=== PATIENT | female | born 1940 | race Asian ===

== ENCOUNTER 2017-08-20 21:09 | Emergency (ER) | payer MEDICARE, OTHER ==
[~2017-08-20] VITALS: Ht 157.5 cm; Wt 65.8 kg
[~2017-08-20 21:09] MED LIST: ATEN25TA7 PO; CALC-794 PO; ESOM40EC PO; IBUP-1842 PO; MECL-305 PO; TAMS0.4C96 PO
[2017-08-20 21:11] VITALS: BP 140/81
--- NOTE | 2017-08-20 21:24 | NUR ---
RT CALLED FOR BREATHING TX, SPOKE TO CLAUDIO
--- NOTE | 2017-08-20 21:24 | NUR ---
76Y F BIB FAMILY C/O COUGH AND WHEEZING X 10 DAYS. PT FAMILY STATES SHE HAS BEEN ON ABX AND PHENERGAN DM FOR COUGH AND WHEEZING BUT SYMPTOMS STILL ARE PRESENT. PT FAMILY DENIES ANY N/V/D, CP AT THE MOMENT. PT HAS PRODUCTIVE COUGH. NKA. PT WHEELCHAIR ASSISTED TO ER BED 12. ER MD MADE AWARE.
[2017-08-20] MEDS ORDERED: ALBUTEROL 0.083% 2.5 MG/3 ML NEBU INH ONE (21:25)
[2017-08-20] MEDS ORDERED: ALBUTEROL SULFATE/IPRATROPIU 3 ML SOL IH ONE (21:25)
[2017-08-20] MEDS ORDERED: predniSONE 20 MG TAB PO ONE (21:25)
--- NOTE | 2017-08-20 21:31 | NUR ---
Respiratory Therapist at bedside for respiratory intervention.
[2017-08-20] MEDS ORDERED: NACL 0.9% 1,000 ML IV ONE (22:45)
[2017-08-20] MEDS ORDERED: KETOROLAC 30 MG/ML VIAL IVP ONE (22:45)
[2017-08-20 23:14] LABS: BASOPHILS # (AUTO) 0.4 K/uL (0.00-0.22); BASOPHILS % (AUTO) 3.7 % (0.0-2.0); EOSINOPHILS # (AUTO) 0.8 K/uL (0-0.4); EOSINOPHILS % (AUTO) 7.6 % (0.0-4.0); HEMATOCRIT 31.5 % (36-48); HEMOGLOBIN 10.2 g/dL (12.0-16.0); LYMPHOCYTES % (AUTO) 18.7 % (20.5-51.1); MEAN CORPUSCULAR HEMOGLOBIN 29 pg (27-31); MEAN CORPUSCULAR HGB CONC 33 g/dL (33-37); MEAN CORPUSCULAR VOLUME 88 fL (80-94); MONOCYTES # (AUTO) 0.4 K/uL (0.8-1.0); MONOCYTES % (AUTO) 3.6 % (1.7-9.3); NEUTROPHILS % (AUTO) 66.4 % (42.2-75.2); PLATELET COUNT (AUTO) 265 K/uL (140-450); RED CELL DISTRIBUTION WIDTH 12.5 % (11.6-13.7); WHITE BLOOD COUNT (AUTO) 10.6 K/uL (4.8-10.8)
[2017-08-20 23:15] LABS: APPEARANCE,URINE SL CLOUDY (CLEAR); BILIRUBIN,URINE NEGATIVE (NEGATIVE); BLOOD, URINE 1+ (NEGATIVE); COLOR,URINE YELLOW (YELLOW); LEUKOCYTE ESTERASE ,URINE TRACE (NEGATIVE); NITRITE, URINE NEGATIVE (NEGATIVE); UGLUCOSE NEGATIVE (NEGATIVE)
[2017-08-20 23:22] LABS: ANION GAP 13.3 (8-16); CARBON DIOXIDE 24.1 mmol/L (21-32); CHLORIDE 109 mmol/L (98-107); CREATININE 0.8 mg/dL (0.6-1.3); GLUCOSE 114 mg/dL (74-106); POTASSIUM 3.4 mmol/L (3.5-5.1); SODIUM SERUM 143 mmol/L (136-145); UREA NITROGEN, BLOOD 17 mg/dL (7-18)
[2017-08-20 23:28] LABS: ALBUMIN 3.5 g/dL (3.4-5.0); ASPARTATE AMINOTRANSFERASE 18 U/L (15-37); TOTAL BILIRUBIN 0.2 mg/dL (0.0-1.0)
[2017-08-20 23:32] LABS: RBC,URINE 0-5 (RARE) /HPF (0-5); URINE AMORPHOUS URATE 3+ /HPF (None Seen); WBC,URINE 0-5 (RARE) /HPF (0-5)
[2017-08-21 01:08] VITALS: BP 139/82
--- NOTE | 2017-08-21 01:08 | NUR ---
Patient discharged with v/s stable. Written and verbal after care instructions given and explained. Patient alert, oriented and verbalized understanding of instructions. Ambulatory with steady gait. All questions addressed prior to discharge. ID band removed. Patient advised to follow up with PMD. Rx of MOTRIN 600MG, PREDNISONE 20MG AND ALBUTEROL 90MCG given. Patient educated on indication of medication including possible reaction and side effects. Opportunity to ask questions provided and answered.
== END 2017-08-21 01:08 | disposition home or self-care (01) ==
LOC: MED 21:09
DX: R06.02 Shortness of breath (principal); R05 Cough; R51 Headache; I10 Essential (primary) hypertension; Z79.899 Other long term (current) drug therapy
CPT/HCPCS: 36415; 71045; 80053; 81001; 83880; 84484; 85025; 94640; 96361; 96374; 99285; J1885; J7030; J7512; J7613; J7620; Q0092

== ENCOUNTER 2021-01-01 18:49 | Observation (INO) | payer OTHER, MEDICARE, SELFPAY ==
[~2021-01-01] VITALS: Ht 152.4 cm; Wt 59.0 kg
[2021-01-01] MEDS: NACL 0.9% 1,000 ML IV SCH (00:30)
[~2021-01-01 18:49] MED LIST changes: -CALC-794 PO; +MECL-231 PO; -MECL-305 PO; +[UNRECOGNIZED DRUG - OTHER] PO
[2021-01-01 19:03] VITALS: BP 124/55
--- NOTE | 2021-01-01 19:11 | NUR ---
PT W/C ASSISTED TO ER BED 6. FAMILY AT BEDSIDE
--- NOTE | 2021-01-01 19:54 | NUR ---
Dr. Doyle examining patient.
[2021-01-01] MEDS ORDERED: cefTRIAXone 1,000 MG in DEXT 5% MINI-BAG PLUS 50 ML IV ONE (20:05)
--- NOTE | 2021-01-01 20:24 | NUR ---
EKG PERFORMED AT BEDSIDE. EKG READS SINUS RHYTHM @ 59
[2021-01-01 20:26] LABS: BASOPHILS # (AUTO) 0.1 K/uL (0.00-0.22); EOSINOPHILS # (AUTO) 0.2 K/uL (0-0.4); EOSINOPHILS % (AUTO) 1.8 % (0.0-4.0); HEMATOCRIT 36.5 % (36-48); LYMPHOCYTES # (AUTO) 2.3 K/uL (2.5-16.5); LYMPHOCYTES % (AUTO) 26.2 % (20.5-51.1); MEAN CORPUSCULAR HEMOGLOBIN 30 pg (27-31); MEAN CORPUSCULAR HGB CONC 33 g/dL (33-37); MEAN CORPUSCULAR VOLUME 91.4 fL (80-94); MONOCYTES # (AUTO) 0.8 K/uL (0.8-1.0); MONOCYTES % (AUTO) 9.4 % (1.7-9.3); NEUTROPHILS # (AUTO) 5.4 K/uL (1.8-7.7); NEUTROPHILS % (AUTO) 61.6 % (42.2-75.2); PLATELET COUNT (AUTO) 344 K/uL (140-450); RED CELL DISTRIBUTION WIDTH 13.7 % (11.6-13.7); WHITE BLOOD COUNT (AUTO) 8.8 K/uL (4.8-10.8)
[2021-01-01 20:31] LABS: APPEARANCE,URINE CLEAR (CLEAR); BILIRUBIN,URINE NEGATIVE (NEGATIVE); BLOOD, URINE NEGATIVE (NEGATIVE); COLOR,URINE YELLOW (YELLOW); LEUKOCYTE ESTERASE ,URINE NEGATIVE (NEGATIVE); NITRITE, URINE NEGATIVE (NEGATIVE); UGLUCOSE NEGATIVE (NEGATIVE)
[2021-01-01 20:45] LABS: ALBUMIN 3.7 g/dL (3.4-5.0); ANION GAP 15.6 (8-16); ASPARTATE AMINOTRANSFERASE 12 U/L (15-37); CARBON DIOXIDE 25.7 mmol/L (21-32); CHLORIDE 106 mmol/L (98-107); GLUCOSE 100 mg/dL (74-106); POTASSIUM 4.3 mmol/L (3.5-5.1); SODIUM SERUM 143 mmol/L (136-145); TOTAL BILIRUBIN 0.5 mg/dL (0.0-1.0); UREA NITROGEN, BLOOD 15 mg/dL (7-18)
--- NOTE | 2021-01-01 20:50 | NUR ---
PT TAKEN TO CT
[2021-01-01] MEDS ORDERED: cefTRIAXone 1,000 MG VIAL ONE (20:59)
--- NOTE | 2021-01-01 21:03 | NUR ---
PT RETURN FROM CT
--- NOTE | 2021-01-01 21:15 | NUR ---
80 YO/F BIB self accompanied by rajiv w C/O dizzyness, feeling faint, weakness in arms and legs x10 years but worsened today. Patient also reports vomiting several times w C/O neck and epigastric pain when vomiting. Patient denies any pain at this time. Patient GCS 14. Lungs sounds clear throughout, breathing even and unlabored. S1S2 present. Bowel sounds present. Assessed patient w Portuguese director inpatient headache program assistance ID #[id number]. Patient sitting in bed locked in lowest position, HOB elevated x2 side rails up for patient safety. NAD noted, will continue to monitor. PMH: HTN NKA
--- NOTE | 2021-01-01 22:05 | NUR ---
Meghna sample collected from Nares and handed to Flower from lab. Patient tolerated procedure well.
--- NOTE | 2021-01-01 22:10 | NUR ---
Patient's daughter Medina, gave contact information phone number to contact when patient is ready for discharge.
[2021-01-01] MEDS ORDERED: AMPI500C49 PO (23:17)
[2021-01-01] MEDS ORDERED: SIMV20TA1 PO (23:17)
[2021-01-01] MEDS ORDERED: CALC-483 MC (23:17)
[2021-01-01] MEDS ORDERED: OMEP20TC10 PO (23:17)
[2021-01-01] MEDS ORDERED: BACL10TA4 PO (23:17)
[2021-01-01] MEDS ORDERED: ACETAMINOPHEN 325 MG TAB PO PRN (23:35)
[2021-01-01] MEDS ORDERED: MORPHINE SULFATE 2 MG/ML SYR IVP PRN (23:35)
[2021-01-01] MEDS ORDERED: ONDANSETRON 4 MG/2 ML VIAL IVP PRN (23:35)
[2021-01-01] MEDS ORDERED: LORazepam 2 MG/ML VIAL IVP PRN (23:35)
--- NOTE | 2021-01-02 00:08 | NUR ---
CALLED REPORT TO TATIANA CARVAJAL TO GIVE REPORT. ETA TO FLOOR APPROXIMATELY 5-10 MINS.
--- NOTE | 2021-01-02 00:10 | NUR ---
RECEIVED CALL FROM ER NURSE FOR REPORT. WAITING PATIENT TO TRANSFER TO UNIT.
--- NOTE | 2021-01-02 00:15 | NUR ---
PT ADMITTED UNDER THE CARE OF DR. MUNOZ. PT TRANSPORTED TO MED/SURG RM 121B VIA W/C IN STABLE CONDITION.
[2021-01-02 00:20] VITALS: BP 108/84
--- NOTE | 2021-01-02 00:20 | NUR ---
RECEIVED PATIENT TO ROOM 121B. CC GEN WEAKNESS AND EPIGASTRIC PAIN, DX DIZZINESS. PATIENT SPEAKS [place]. A/A/O X4. RESPIRATORY EVEN AND UNLABORED, ON ROOM AIR. LUNG SOUNDS CLEAR TO AUSCULTATE, NO SIGN OF RESPIRATORY DISTRESS NOTED. BOWEL SOUND ACTIVE TO 4 QUADRANTS. ABDOMEN ROUND, NON TENDER. SKIN WARM, DRY, NON DIAPHORETIC. IV ON LEFT HAND 20G, INTACT AND PATENT, SALINE LOCK. PATIENT DENIES ANY PAIN OR DISCOMFORT. ABLE TO MAKE NEEDS KNOW. MRSA WAS COLLECT FROM ER. ORIENTED TO UNIT AND ROOM. PLAN OF CARE DISCUSSED, PATIENT VERBALIZED UNDERSTANDING. PRECAUTION IN PLACE. CALL LIGHT WITHIN REACH. WILL CONTINUE TO MONITOR.
--- NOTE | 2021-01-02 02:00 | NUR ---
ROUND CHECK. PATIENT IS SLEEPING, CHEST RISE AND FALL NOTED. NO SIGN OF DISTRESS NOTED. PRECAUTION IN PLACE. CALL LIGHT WITHIN REACH. WILL CONTINUE TO MONITOR.
[2021-01-02 04:00] VITALS: BP 110/52
--- NOTE | 2021-01-02 04:00 | NUR ---
ROUND CHECK. PATIENT IS SLEEPING, AROUSABLE TO VOICE. NO SIGN OF DISTRESS NOTED. PRECAUTION IN PLACE. WILL CONTINUE TO MONITOR.
[2021-01-02 05:08] LABS: BASOPHILS # (AUTO) 0.1 K/uL (0.00-0.22); BASOPHILS % (AUTO) 0.6 % (0.0-2.0); EOSINOPHILS # (AUTO) 0.1 K/uL (0-0.4); EOSINOPHILS % (AUTO) 0.8 % (0.0-4.0); HEMATOCRIT 32.4 % (36-48); HEMOGLOBIN 10.8 g/dL (12.0-16.0); LYMPHOCYTES # (AUTO) 2.5 K/uL (2.5-16.5); MEAN CORPUSCULAR HEMOGLOBIN 30 pg (27-31); MEAN CORPUSCULAR HGB CONC 33 g/dL (33-37); MEAN CORPUSCULAR VOLUME 90.6 fL (80-94); MONOCYTES # (AUTO) 0.8 K/uL (0.8-1.0); MONOCYTES % (AUTO) 8.7 % (1.7-9.3); NEUTROPHILS # (AUTO) 5.3 K/uL (1.8-7.7); NEUTROPHILS % (AUTO) 60.9 % (42.2-75.2); PLATELET COUNT (AUTO) 299 K/uL (140-450); RED BLOOD CELL COUNT(AUTO) 3.58 MIL/uL (4.20-5.40); RED CELL DISTRIBUTION WIDTH 13.4 % (11.6-13.7); WHITE BLOOD COUNT (AUTO) 8.7 K/uL (4.8-10.8)
[2021-01-02 05:44] LABS: CREATINE KINASE MB 0.5 ng/mL (0-3.6)
[2021-01-02 06:05] LABS: ALBUMIN 3.2 g/dL (3.4-5.0); ANION GAP 12.2 (8-16); ASPARTATE AMINOTRANSFERASE 17 U/L (15-37); CHLORIDE 109 mmol/L (98-107); GLUCOSE 96 mg/dL (74-106); MAGNESIUM 1.7 mg/dL (1.8-2.4); POTASSIUM 4.2 mmol/L (3.5-5.1); SODIUM SERUM 142 mmol/L (136-145); TOTAL BILIRUBIN 0.3 mg/dL (0.0-1.0); UREA NITROGEN, BLOOD 15 mg/dL (7-18)
--- NOTE | 2021-01-02 06:21 | NUR ---
ASSIST PATIENT AMBULATE TO BATHROOM. PATIENT TOLERATED WELL. NO SIGN OF DISTRESS NOTED. WILL CONTINUE TO MONITOR.
--- NOTE | 2021-01-02 07:15 | NUR ---
ENDORSED PATIENT TO AM NURSE FOR CONTINUITY OF CARE. PATIENT IS STABLE.
--- NOTE | 2021-01-02 07:17 | NUR ---
RECEIVED PATIENT FROM NIGHT NURSE. PATIENT IN BED SLEEPING, CHEST NOTED RISING. NO NOTED DISTRESS AT THIS TIME. LH 20G INFUSING NS 100ML/HR. HOB ELEVATED. SAFETY MEASURES IN PLACE. CALL LIGHT WITHIN REACH. WILL CONTINUE TO MONITOR.
[2021-01-02 08:00] VITALS: BP 127/57
[2021-01-02] MEDS ORDERED: ASPIRIN 81 MG TAB.CHEW PO SCH (09:00)
[2021-01-02] MEDS ORDERED: ENOXAPARIN 40 MG/0.4 ML SYR SUBQ SCH (09:00)
[2021-01-02] MEDS ORDERED: CRUSHER, PILL MC ONE (09:29)
[2021-01-02] MEDS: MECLIZINE 25 MG TAB PO SCH ×3 (09:33→17:17)
[2021-01-02] MEDS: NACL 0.9% 1,000 ML IV SCH (09:53)
--- NOTE | 2021-01-02 09:55 | NUR ---
PATIENT IN BED AWAKE AND ALERT. MORNING ROUTINE MEDICATIONS GIVEN, PATIENT TOLERATED WELL. PT AT BEDSIDE FOR EVALUATION. PATIENT ABLE TO AMBULATE WITH STANDBY ASSIST. PATIENT STATED SHE USES CANE AT HOME AND DAUGHTER AT HOME TO HELP HER MOVE AROUND. PATIENT ALSO STATED SHE IS UNABLE TO AMBULATE OVER LONG PERIOD OF TIME BECAUSE HER FEET WILL GET PAINFUL. DENIED OF ANY SOB DURING AMBULATION. SKIN WARM TO TOUCH AND INTACT. PLAN OF CARE DISCUSSED, PATIENT VERBALIZED UNDERSTANDING. CALL LIGHT WITHIN REACH. WILL CONTINUE TO MONITOR .
--- NOTE | 2021-01-02 10:03 | NUR ---
PATIENT HAS BEEN SCREENED AND CATEGORIZED LOW NUTRITION RISK. PATIENT WILL BE SEEN WITHIN 7 DAYS OF ADMISSION. 01/07/[address]
--- NOTE | 2021-01-02 12:20 | NUR ---
PATIENT SITTING UP IN BED EATING LUNCH. NO NOTED DISTRESS AT THIS TIME. FAMILY VISIT AT BEDSIDE. WILL CONTINUE TO MONITOR.
--- NOTE | 2021-01-02 13:30 | NUR ---
PATIENT IN BED AWAKE AND ALERT. ROUTINE MEDICATION GIVEN. PATIENT TOLERATED WELL. NO NOTED DISTRESS AT THIS TIME. CALL LIGHT WITHIN REACH. WILL CONTINUE TO MONITOR.
[2021-01-02 13:57] LABS: CREATINE KINASE MB 0.4 ng/mL (0-3.6)
[2021-01-02] MEDS ORDERED: MECL-231 PO (14:05)
--- NOTE | 2021-01-02 15:40 | NUR ---
PATIENT IN BED SLEEPING, CHEST NOTED RISING. CALL LIGHT WITHIN REACH. WILL CONTINUE TO MONITOR.
[2021-01-02 16:00] VITALS: BP 113/55
--- NOTE | 2021-01-02 17:31 | NUR ---
PATIENT IN BED AWAKE AND ALERT. RESP EVEN AND UNLABORED ON ROOM AIR. ROUTINE MEDICATION GIVEN, TOLERATED WELL. PATIENT MADE AWARE OF DISCHARGE ORDER. PATIENT VERBALIZED UNDERSTANDING. CALL LIGHT WITHIN REACH. WILL CONTINUE TO MONITOR.
[2021-01-02 18:11] VITALS: BP 113/59
--- NOTE | 2021-01-02 18:46 | NUR ---
PATIENT DISCHARGED HOME WITH FAMILY. DISCHARGE INSTRUCTIONS GIVEN, PATIENT VERBALIZED UNDERSTANDING. PNEUMO STATED GIVEN RECENTLY. PATIENT LEFT WITH ALL PERSONAL BELONGINGS. PATIENT LEFT IN STABLE CONDITION.
== END 2021-01-02 18:45 | disposition home or self-care (01) ==
LOC: MED 18:49 → MTU 23:41
PROVIDERS: ADMIT Hospitalist; ATTEND Hospitalist
DX: R42 Dizziness and giddiness (principal); Z20.822 Contact with and (suspected) exposure to COVID-19; R07.89 Other chest pain; R53.1 Weakness; I10 Essential (primary) hypertension; E78.5 Hyperlipidemia, unspecified; K21.9 Gastro-esophageal reflux disease without esophagitis; Z79.899 Other long term (current) drug therapy
CPT/HCPCS: 36415; 70450; 71045; 80053; 81003; 82550; 82553; 83605; 83735; 83880; 84484; 85025; 87040; 87086; 87426; 93005; 96361; 96365; 96372; 97162; 99285; G0378; J0696; J1650; J8597

== ENCOUNTER 2021-07-14 17:35 | Emergency (ER) | payer MEDICARE, OTHER, SELFPAY ==
[~2021-07-14 17:35] MED LIST changes: +AMPI500C49 PO; -ATEN25TA7 PO; +BACL10TA4 PO; +CALC-483 MC; -ESOM40EC PO; -IBUP-1842 PO; +OMEP20TC10 PO; +SIMV20TA1 PO; -TAMS0.4C96 PO; -[UNRECOGNIZED DRUG - OTHER] PO
--- NOTE | 2021-07-14 18:46 | NUR ---
PT CALLED IN TENT AND LOBBY, NO ANSWER. MADE AWARE.
--- NOTE | 2021-07-14 18:56 | NUR ---
PT CALLED IN TENT AND LOBBY SECOND TIME, NO ANSWER. MADE AWARE.
--- NOTE | 2021-07-14 19:02 | NUR ---
PT CALLED IN TENT AND LOBBY THIRD TIME, NO ANSWER. MADE AWARE.
== END 2021-07-14 18:46 | disposition left against medical advice (07) ==
LOC: MED 17:35
DX: R11.10 Vomiting, unspecified (principal); M79.10 Myalgia, unspecified site; R50.9 Fever, unspecified; Z53.21 Procedure and treatment not carried out due to patient leaving prior to being seen by health care provider